=== PATIENT | female | born 1995 | race African-American/Black ===

== ENCOUNTER 2016-11-10 23:33 | Emergency (ER) | payer OTHER ==
[~2016-11-10] VITALS: Ht 162.6 cm; Wt 54.4 kg
[~2016-11-10 23:33] MED LIST: BUTALB-APAP-CA1 EACH PO; DEPO-PROVE150 MG/1 M IM; HYDROCORTISONE3011 TP; IBUPROFEN 600600 M1 PO; MOBIC15 MG PO; NOHOMEMEDICATIONS; PREDNISONE 20 M20 MG PO; TESSALON PERLE100 MG PO; TRAMADOL 50 MG50 MG PO; TYLENOL325 MG PO; ZYRTEC10 M2 PO
[2016-11-10 23:38] VITALS: BP 126/80
[2016-11-10] MEDS ORDERED: MOBIC15 MG PO (23:48)
[2016-11-10] MEDS ORDERED: PENICILLIN V P500 MG PO (23:48)
== END 2016-11-11 00:21 | disposition home or self-care (01) ==
LOC: ER 23:33
DX: K02.9 Dental caries, unspecified (principal); J45.909 Unspecified asthma, uncomplicated; Z98.890 Other specified postprocedural states

== ENCOUNTER 2016-12-13 17:25 | Emergency (ER) | payer OTHER ==
[~2016-12-13] VITALS: Ht 162.6 cm; Wt 73.9 kg
[~2016-12-13 17:25] MED LIST changes: +PENICILLIN V P500 MG PO
[2016-12-13 17:27] VITALS: BP 118/64
[2016-12-13 18:07] LABS: URINE BILIRUBIN NEGATIVE (Negative); URINE BLOOD NEGATIVE (Negative); URINE COLOR YELLOW; URINE GLUCOSE-RANDOM* NEGATIVE (Negative); URINE KETONES NEGATIVE (Negative); URINE LEUKOCYTES-REFLEX NEGATIVE (Negative); URINE PROTEIN (DIPSTICK) NEGATIVE (Negative); URINE SPECIFIC GRAVITY 1.015 (1.003-1.035); URINE UROBILINOGEN 0.2 E.U./dl (0.2-1.0)
[2016-12-13] MEDS ORDERED: LIORESAL 10 MG10 MG PO (18:34)
[2016-12-13] MEDS ORDERED: MOBIC15 MG PO (18:34)
== END 2016-12-13 18:47 | disposition home or self-care (01) ==
LOC: ER 17:25
PROVIDERS: Physician Assistant
DX: S39.012A Strain of muscle, fascia and tendon of lower back, initial encounter (principal); M79.605 Pain in left leg; X58.XXXA Exposure to other specified factors, initial encounter; Y93.89 Activity, other specified; Y92.89 Other specified places as the place of occurrence of the external cause; Y99.8 Other external cause status

== ENCOUNTER 2017-01-16 20:31 | Emergency (ER) | payer OTHER ==
[~2017-01-16] VITALS: Ht 162.6 cm; Wt 77.1 kg
[~2017-01-16 20:31] MED LIST changes: +LIORESAL 10 MG10 MG PO
[2017-01-16 21:54] VITALS: BP 92/56
== END 2017-01-16 21:58 | disposition home or self-care (01) ==
LOC: ER 20:31
DX: R51 Headache (principal); R42 Dizziness and giddiness; J45.909 Unspecified asthma, uncomplicated; Z98.890 Other specified postprocedural states

== ENCOUNTER 2017-02-09 11:21 | Emergency (ER) | payer OTHER ==
[~2017-02-09] VITALS: Ht 162.6 cm; Wt 79.8 kg
[2017-02-09 12:02] LABS: URINE BILIRUBIN NEGATIVE (Negative); URINE BLOOD NEGATIVE (Negative); URINE COLOR YELLOW; URINE GLUCOSE-RANDOM* NEGATIVE (Negative); URINE KETONES NEGATIVE (Negative); URINE LEUKOCYTES-REFLEX NEGATIVE (Negative); URINE PROTEIN (DIPSTICK) NEGATIVE (Negative); URINE SPECIFIC GRAVITY 1.025 (1.003-1.035); URINE UROBILINOGEN 0.2 E.U./dl (0.2-1.0)
[2017-02-09 12:20] VITALS: BP 117/62
== END 2017-02-09 12:20 | disposition home or self-care (01) ==
LOC: ER 11:21
PROVIDERS: Emergency Medicine
DX: M54.5 Low back pain (principal); J45.909 Unspecified asthma, uncomplicated; Z90.89 Acquired absence of other organs

== ENCOUNTER 2017-05-17 21:43 | Emergency (ER) | payer OTHER ==
[~2017-05-17] VITALS: Ht 162.6 cm; Wt 78.5 kg
[~2017-05-17 21:43] MED LIST changes: +NAPROSYN500 MG PO
[2017-05-17 21:51] VITALS: BP 117/71
[2017-05-17 22:46] LABS: URINE BILIRUBIN NEGATIVE (Negative); URINE BLOOD NEGATIVE (Negative); URINE COLOR YELLOW; URINE GLUCOSE-RANDOM* NEGATIVE (Negative); URINE KETONES NEGATIVE (Negative); URINE LEUKOCYTES-REFLEX NEGATIVE (Negative); URINE PROTEIN (DIPSTICK) NEGATIVE (Negative); URINE SPECIFIC GRAVITY >= 1.030 (1.005-1.035); URINE UROBILINOGEN 0.2 E.U./dl (0.2-1.0)
== END 2017-05-17 23:19 | disposition home or self-care (01) ==
LOC: ER 21:43
PROVIDERS: Emergency Medicine
DX: Z32.02 Encounter for pregnancy test, result negative (principal); M54.5 Low back pain; J45.909 Unspecified asthma, uncomplicated; Z90.89 Acquired absence of other organs

== ENCOUNTER 2017-07-10 12:15 | Emergency (ER) | payer OTHER ==
[~2017-07-10] VITALS: Ht 162.6 cm; Wt 80.7 kg
[2017-07-10 12:33] LABS: URINE BILIRUBIN NEGATIVE (Negative); URINE BLOOD NEGATIVE (Negative); URINE CLARITY CLEAR; URINE COLOR YELLOW; URINE GLUCOSE-RANDOM* NEGATIVE (Negative); URINE KETONES NEGATIVE (Negative); URINE LEUKOCYTES 1+ (Negative); URINE NITRITE NEGATIVE (Negative); URINE PROTEIN (DIPSTICK) NEGATIVE (Negative); URINE SPECIFIC GRAVITY 1.015 (1.005-1.035)
[2017-07-10 12:41] LABS: BACTERIA 1-9 Few /HPF (None Seen); CRYSTALS None Seen /LPF (None Seen); SQUAMOUS >10 Many /LPF (0-3); URINE RBC None Seen /HPF (0-2); URINE WBC 6-15 Few /HPF (0-5)
[2017-07-10] MEDS ORDERED: BACTRIM DS TAB1 EACH PO (12:44)
[2018-01-11] MEDS ORDERED: NORFLEX100 MG PO (14:46)
[2018-01-11] MEDS ORDERED: IBUPROFEN 800800 M1 PO (14:46)
== END 2017-07-10 13:13 | disposition home or self-care (01) ==
LOC: ER 12:15
PROVIDERS: Physician Assistant
DX: N39.0 Urinary tract infection, site not specified (principal); J45.909 Unspecified asthma, uncomplicated

== ENCOUNTER 2017-11-06 21:13 | Emergency (ER) | payer OTHER ==
[~2017-11-06] VITALS: Ht 152.4 cm; Wt 73.5 kg
[~2017-11-06 21:13] MED LIST changes: +BACTRIM DS TAB1 EACH PO
[2017-11-06] MEDS ORDERED: HYDROCODONE-ACE15 ML PO (21:47)
[2017-11-06 22:28] VITALS: BP 100/64
== END 2017-11-06 22:28 | disposition home or self-care (01) ==
LOC: ER 21:13
DX: J04.0 Acute laryngitis (principal); J02.9 Acute pharyngitis, unspecified; J45.909 Unspecified asthma, uncomplicated

== ENCOUNTER 2017-12-03 09:11 | Emergency (ER) | payer OTHER ==
[~2017-12-03] VITALS: Ht 165.1 cm; Wt 63.5 kg
[~2017-12-03 09:11] MED LIST changes: +HYDROCODONE-ACE15 ML PO
[2017-12-03] MEDS ORDERED: PROMETH-CODEIN 65 ML PO (09:49)
[2017-12-03 09:58] VITALS: BP 117/71
== END 2017-12-03 09:58 | disposition home or self-care (01) ==
LOC: ER 09:11
DX: J06.9 Acute upper respiratory infection, unspecified (principal); J45.909 Unspecified asthma, uncomplicated

== ENCOUNTER 2017-12-22 10:42 | Emergency (ER) | payer OTHER ==
[~2017-12-22] VITALS: Ht 162.6 cm; Wt 70.8 kg
[~2017-12-22 10:42] MED LIST changes: +PROMETH-CODEIN 65 ML PO
[2017-12-22 11:02] LABS: URINE BILIRUBIN NEGATIVE (Negative); URINE BLOOD NEGATIVE (Negative); URINE CLARITY CLEAR; URINE COLOR YELLOW; URINE GLUCOSE-RANDOM* NEGATIVE (Negative); URINE KETONES TRACE (Negative); URINE LEUKOCYTES NEGATIVE (Negative); URINE NITRITE NEGATIVE (Negative); URINE PROTEIN (DIPSTICK) TRACE (Negative); URINE SPECIFIC GRAVITY >= 1.030 (1.005-1.035); URINE UROBILINOGEN 0.2 E.U./dl (0.2-1.0)
[2017-12-22 11:24] LABS: HEMOGLOBIN 13.5 gm/dL (12.0-15.0); MCH 31.1 pg (26.0-34.0); MCHC 34.5 g/dL (28.0-37.0); MCV 90.1 fL (80.0-100.0); PLATELET COUNT 242 thou/uL (150-400); RBC 4.33 mil/uL (4.20-5.00); RDW 13.4 % (10.5-14.5); WBC 3.9 thou/uL (4.0-11.0)
[2017-12-22 11:41] LABS: CALCIUM 9.2 mg/dL (8.5-10.1); CREATININE 0.9 mg/dL (0.6-1.0)
[2017-12-22 12:09] LABS: ABSOLUTE NEUTROPHILS 1.8 thou/uL (1.4-8.2); ATYPICAL LYMPHS 5 %; PLATELET ESTIMATE NORMAL
[2017-12-22] MEDS ORDERED: PHENERGAN 25 MG25 M1 PO (12:10)
[2017-12-22 12:22] VITALS: BP 121/74
== END 2017-12-22 12:24 | disposition home or self-care (01) ==
LOC: ER 10:42
PROVIDERS: Physician Assistant
DX: R11.2 Nausea with vomiting, unspecified (principal); R19.7 Diarrhea, unspecified; R10.13 Epigastric pain; R51 Headache; J45.909 Unspecified asthma, uncomplicated; Z90.89 Acquired absence of other organs

== ENCOUNTER 2018-03-05 14:37 | Emergency (ER) | payer OTHER ==
[~2018-03-05] VITALS: Ht 162.6 cm; Wt 65.8 kg
[~2018-03-05 14:37] MED LIST changes: +IBUPROFEN 800800 M1 PO; +NORFLEX100 MG PO; +PHENERGAN 25 MG25 M1 PO
[2018-03-05 15:34] LABS: HEMATOCRIT 36.4 % (37.0-47.0); HEMOGLOBIN 12.7 gm/dL (12.0-15.0); MCH 31.3 pg (26.0-34.0); MCV 89.4 fL (80.0-100.0); RBC 4.07 mil/uL (4.20-5.00); RDW 12.5 % (10.5-14.5); WBC 3.9 thou/uL (4.0-11.0)
[2018-03-05 15:40] LABS: CALCIUM 9.8 mg/dL (8.5-10.1); CREATININE 0.9 mg/dL (0.6-1.0); POTASSIUM 3.2 mmol/L (3.5-5.1)
[2018-03-05 15:46] LABS: ALBUMIN 3.9 g/dL (3.4-5.0); TOTAL BILIRUBIN 0.4 mg/dL (<0.1-1.0); TOTAL PROTEIN 6.9 g/dL (6.4-8.2)
[2018-03-05 17:22] VITALS: BP 104/70
== END 2018-03-05 17:31 | disposition home or self-care (01) ==
LOC: ER 14:37
PROVIDERS: Emergency Medicine
DX: M54.2 Cervicalgia (principal); M54.6 Pain in thoracic spine; J45.909 Unspecified asthma, uncomplicated

== ENCOUNTER 2019-03-06 08:29 | Emergency (ER) | payer OTHER ==
[~2019-03-06] VITALS: Ht 162.6 cm; Wt 61.2 kg
[2019-03-06 08:46] LABS: URINE BILIRUBIN NEGATIVE (Negative); URINE BLOOD NEGATIVE (Negative); URINE CLARITY CLEAR; URINE COLOR YELLOW; URINE GLUCOSE-RANDOM* NEGATIVE (Negative); URINE KETONES NEGATIVE (Negative); URINE LEUKOCYTES-REFLEX NEGATIVE (Negative); URINE NITRITE-REFLEX NEGATIVE (Negative); URINE PROTEIN (DIPSTICK) NEGATIVE (Negative); URINE SPECIFIC GRAVITY 1.025 (1.005-1.035)
[2019-03-06 10:04] VITALS: BP 102/41
== END 2019-03-06 10:06 | disposition home or self-care (01) ==
LOC: ER 08:29
PROVIDERS: Emergency Medicine
DX: N72 Inflammatory disease of cervix uteri (principal); J45.909 Unspecified asthma, uncomplicated; Z90.89 Acquired absence of other organs

== ENCOUNTER 2019-09-10 17:10 | Emergency (ER) | payer OTHER ==
[~2019-09-10] VITALS: Ht 162.6 cm; Wt 59.0 kg
[2019-09-10 17:28] LABS: URINE BILIRUBIN NEGATIVE (Negative); URINE BLOOD 2+ (Negative); URINE CLARITY CLEAR; URINE COLOR YELLOW; URINE GLUCOSE-RANDOM* NEGATIVE (Negative); URINE KETONES NEGATIVE (Negative); URINE LEUKOCYTES-REFLEX TRACE (Negative); URINE NITRITE-REFLEX NEGATIVE (Negative); URINE PROTEIN (DIPSTICK) NEGATIVE (Negative); URINE SPECIFIC GRAVITY 1.025 (1.005-1.035); URINE UROBILINOGEN 0.2 E.U./dl (0.2-1.0)
[2019-09-10 17:36] LABS: CASTS None Seen /LPF (None Seen); MUCUS >6 Heavy strn/LPF (None Seen); SQUAMOUS 4-10 Moderate /LPF (0-3)
[2019-09-10 17:37] LABS: BACTERIA-REFLEX None Seen /HPF (None Seen); CRYSTALS None Seen /LPF (None Seen); URINE RBC 3-10 Few /HPF (0-2); URINE WBC-REFLEX 0-5 Rare /HPF (0-5)
[2019-09-10] MEDS ORDERED: DOXYCYCLINE 10100 MG PO (18:54)
[2019-09-10 19:03] VITALS: BP 112/66
== END 2019-09-10 19:05 | disposition home or self-care (01) ==
LOC: ER 17:10
PROVIDERS: Emergency Medicine
DX: N76.0 Acute vaginitis (principal); R30.0 Dysuria; J45.909 Unspecified asthma, uncomplicated; Z20.2 Contact with and (suspected) exposure to infections with a predominantly sexual mode of transmission

== ENCOUNTER 2021-05-17 10:31 | Emergency (ER) | payer OTHER ==
[~2021-05-17] VITALS: Ht 162.6 cm; Wt 54.4 kg
[~2021-05-17 10:31] MED LIST changes: +DOXYCYCLINE 10100 MG PO
[2021-05-17 10:58] LABS: URINE BILIRUBIN NEGATIVE (Negative); URINE BLOOD NEGATIVE (Negative); URINE CLARITY CLEAR; URINE COLOR YELLOW; URINE GLUCOSE-RANDOM* NEGATIVE (Negative); URINE KETONES NEGATIVE (Negative); URINE LEUKOCYTES-REFLEX NEGATIVE (Negative); URINE NITRITE-REFLEX NEGATIVE (Negative); URINE PROTEIN (DIPSTICK) NEGATIVE (Negative); URINE SPECIFIC GRAVITY 1.025 (1.005-1.035); URINE UROBILINOGEN 0.2 E.U./dl (0.2-1.0)
[2021-05-17] MEDS ORDERED: FLAGYL375 MG PO (12:20)
[2021-05-17 12:25] VITALS: BP 95/48
[2021-05-17] MEDS ORDERED: AZITHROMYCIN500 MG PO (18:49)
== END 2021-05-17 12:25 | disposition home or self-care (01) ==
LOC: ER 10:31
PROVIDERS: Student in an Organized Health Care Education/Training Program
DX: N76.0 Acute vaginitis (principal); B96.89 Other specified bacterial agents as the cause of diseases classified elsewhere; A74.9 Chlamydial infection, unspecified; J45.909 Unspecified asthma, uncomplicated; F12.90 Cannabis use, unspecified, uncomplicated; Z90.89 Acquired absence of other organs